=== PATIENT | female | born 1950 | race Caucasian/White ===

== ENCOUNTER 2018-02-21 13:26 | Emergency (ER) | payer MEDICARE, OTHER ==
[~2018-02-21] VITALS: Ht 162.6 cm; Wt 63.6 kg
[2018-02-21 14:19] LABS: BASOPHILS % (AUTO) 0.2 % (0-1); EOSINOPHILS # (AUTO) 0.1 X10'3 (0-0.9); EOSINOPHILS % (AUTO) 1.3 % (0-6); HEMATOCRIT 47.9 % (35.0-45.0); LYMPHOCYTES # (AUTO) 1.2 X10'3 (1.1-4.8); LYMPHOCYTES % (AUTO) 21.3 % (21-51); MEAN CORPUSCULAR HEMOGLOBIN 34.4 PG (27.0-31.0); MEAN CORPUSCULAR HGB CONC 35.6 % (33.0-36.5); MEAN CORPUSCULAR VOLUME 96.8 FL (78-98); MEAN PLATELET VOLUME 6.8 FL (7.4-10.4); MONOCYTES # (AUTO) 0.4 X10'3 (0-0.9); MONOCYTES % (AUTO) 7.1 % (2-12); NEUTROPHILS # (AUTO) 4.1 X10'3 (1.8-7.7); NEUTROPHILS % (AUTO) 70.1 % (42-75); PLATELET COUNT 202 X10'3 (140-440); RED BLOOD COUNT 4.95 X10'6 (4.20-5.60); WHITE BLOOD COUNT 5.8 X10'3 (4.5-11.0)
[2018-02-21 14:31] LABS: URINE AMPHETAMINE SCREEN NEGATIVE (Neg); URINE BARBITUATE SCREEN NEGATIVE (Neg); URINE BENZODIAZEPINES SCREEN NEGATIVE (Neg); URINE CANNABINOID SCREEN NEGATIVE (Neg); URINE COCAINE SCREEN NEGATIVE (Neg); URINE METHADONE SCREEN NEGATIVE (Neg); URINE OPIATE SCREEN NEGATIVE (Neg); URINE PHENCYCLIDINE SCREEN NEGATIVE (Neg)
[2018-02-21] MEDS ORDERED: Potassium Cl inj 20 MEQ, magnesium sulf injection 2 GM, folic acid inj. 1 MG, thiamine ... IV ONE ×6 (14:32)
[2018-02-21 14:33] LABS: ALANINE AMINOTRANSFERASE 82 U/L (12-78); ALBUMIN/GLOBULIN RATIO 1.1 (1.1-1.5); ALKALINE PHOSPHATASE 45 IU/L (46-116); ANION GAP 15 (8-16); ASPARTATE AMINO TRANSFERASE 65 U/L (10-37); BILIRUBIN,TOTAL 0.4 MG/DL (0.1-1.0); BLOOD UREA NITROGEN 13 MG/DL (7-18); CALCIUM 9.2 MG/DL (8.5-10.1); CHLORIDE 98 MMOL/L (99-107); CREATININE 0.81 MG/DL (0.40-0.90); ETHANOL 0.231 GM/DL (0.0-0.010); GLUCOSE 82 MG/DL (70-104); POTASSIUM 3.6 MMOL/L (3.5-5.1); SODIUM 138 MMOL/L (135-145); TOTAL CARBON DIOXIDE 24.8 MMOL/L (24-32); TOTAL PROTEIN 7.7 G/DL (6.4-8.2); eGFR 71 ML/MIN
[2018-02-21 17:41] VITALS: BP 118/67
== END 2018-02-21 17:45 | disposition home or self-care (01) ==
LOC: ER 13:26
DX: F10.220 Alcohol dependence with intoxication, uncomplicated (principal); I10 Essential (primary) hypertension; F17.200 Nicotine dependence, unspecified, uncomplicated
CPT/HCPCS: 36415; 80053; 80305; 80320; 85025; 96365; 96366; 99285; J3411; J3475; J3480; J3490

== ENCOUNTER 2020-09-03 08:53 | Emergency (ER) | payer MEDICARE, BC ==
[~2020-09-03] VITALS: Ht 162.6 cm; Wt 49.3 kg
[~2020-09-03 08:53] MED LIST: LISI1TAB51 PO; TRAZ-251 PO
[2020-09-03 12:15] LABS: BASOPHILS % (AUTO) 0.4 % (0-1); EOSINOPHILS % (AUTO) 0.1 % (0-6); HEMOGLOBIN 15.1 g/dl (12.0-16.0); LYMPHOCYTES # (AUTO) 1.5 X10'3 (1.1-4.8); LYMPHOCYTES % (AUTO) 12.9 % (21-51); MEAN CORPUSCULAR HEMOGLOBIN 34.9 PG (27.0-31.0); MEAN CORPUSCULAR HGB CONC 34.4 g/dL (33.0-36.5); MEAN CORPUSCULAR VOLUME 101.3 FL (78-98); MEAN PLATELET VOLUME 7.3 FL (7.4-10.4); MONOCYTES # (AUTO) 0.8 X10'3 (0-0.9); MONOCYTES % (AUTO) 6.7 % (2-12); NEUTROPHILS # (AUTO) 9.1 X10'3 (1.8-7.7); NEUTROPHILS % (AUTO) 79.9 % (42-75); PLATELET COUNT 213 X10'3 (140-440); RED BLOOD COUNT 4.34 X10'6 (4.20-5.60); RED CELL DISTRIBUTION WIDTH 19.2 % (11.5-14.5); WHITE BLOOD COUNT 11.4 X10'3 (4.5-11.0)
[2020-09-03] MEDS ORDERED: traZODone 50mg tablet PO ONE (12:25)
[2020-09-03] MEDS ORDERED: LORazepam 1 MG tablet PO ONE (12:25)
[2020-09-03 12:33] LABS: ALANINE AMINOTRANSFERASE 50 U/L (12-78); ALBUMIN 4.6 G/DL (3.4-5.0); ALBUMIN/GLOBULIN RATIO 1.4 (1.1-1.5); ALKALINE PHOSPHATASE 49 IU/L (46-116); ANION GAP 13 (8-16); ASPARTATE AMINO TRANSFERASE 43 U/L (10-37); BILIRUBIN,TOTAL 1.2 MG/DL (0.1-1.0); BLOOD UREA NITROGEN 20 MG/DL (7-18); BUN/CREATININE RATIO 22.2 (6.6-38.0); CALCIUM 10.3 MG/DL (8.5-10.1); CHLORIDE 91 MMOL/L (99-107); GLUCOSE 93 MG/DL (70-104); MAGNESIUM 1.8 MG/DL (1.5-2.4); POTASSIUM 4.4 MMOL/L (3.5-5.1); SODIUM 128 MMOL/L (135-145); TOTAL CARBON DIOXIDE 24.1 MMOL/L (24-32); eGFR 62 ML/MIN
[2020-09-03 12:55] LABS: ANISOCYTOSIS 2+; PLATELET ESTIMATE NORMAL
--- NOTE | 2020-09-03 13:00 | NUR ---
PATIENT STATES THAT SHE DOES NOT KNOW THE DOSES OF ANY OF HER MEDICATIONS AND IS HERE BECAUSE HER LENS HARDENER WOULD NOT GIVE HER MORE ATIVAN AND TRAZADONE "FOR MY INCREASED SHAKING 'CAUSE OF MY PARKINSONS". PATIENT DID NOT GO TO HER LAST APPOINTMENT WITH DR GUTIERREZ HER NEUROLOGIST LAST WEEK. PATIENT HAS APPT WITH LENS HARDENER AT DR SANTOS OFFICE TOMORROW. I ENCOURAGED HER TO CALL HER DAUGHTER AND SHE IS ON HER WAY PER PATIENT.
--- NOTE | 2020-09-03 13:00 | NUR ---
DAUGHTER IN LAW DANNY [phone] CALL[address]
[2020-09-03 13:24] VITALS: BP 154/86
== END 2020-09-03 13:31 | disposition home or self-care (01) ==
LOC: ER 08:54
DX: I10 Essential (primary) hypertension (principal); G20 Parkinson's disease; Z79.899 Other long term (current) drug therapy; Z76.0 Encounter for issue of repeat prescription
CPT/HCPCS: 36415; 80053; 83735; 85008; 85025; 99284

== ENCOUNTER 2020-10-12 22:34 | Emergency (ER) | payer MEDICARE, BC ==
[~2020-10-12] VITALS: Ht 172.7 cm; Wt 56.8 kg
[2020-10-12] MEDS ORDERED: LORazepam 2 mg/ml vial IV ONE (22:35)
[2020-10-12] MEDS ORDERED: folic acid 1mg tablet PO ONE (22:40)
[2020-10-12] MEDS ORDERED: thiamine 100mg/ml 2ml inj. IM ONE (22:40)
[2020-10-12] MEDS ORDERED: normal saline 1000ML IV soln IVB ONE (22:40)
[2020-10-12 23:17] LABS: ALANINE AMINOTRANSFERASE 13 U/L (12-78); ALBUMIN 4.3 G/DL (3.4-5.0); ALBUMIN/GLOBULIN RATIO 1.4 (1.1-1.5); ALKALINE PHOSPHATASE 43 IU/L (46-116); ANION GAP 9 (8-16); ASPARTATE AMINO TRANSFERASE 22 U/L (10-37); BILIRUBIN,TOTAL 0.6 MG/DL (0.1-1.0); BLOOD UREA NITROGEN 31 MG/DL (7-18); BUN/CREATININE RATIO 23.5 (6.6-38.0); CALCIUM 9.4 MG/DL (8.5-10.1); CHLORIDE 96 MMOL/L (99-107); CREATININE 1.32 MG/DL (0.40-0.90); ETHANOL < 0.010 GM/DL (0.0-0.010); GLUCOSE 123 MG/DL (70-104); POTASSIUM 3.6 MMOL/L (3.5-5.1); SODIUM 134 MMOL/L (135-145); TOTAL CARBON DIOXIDE 29.3 MMOL/L (24-32); TOTAL PROTEIN 7.4 G/DL (6.4-8.2); eGFR 40 ML/MIN
[2020-10-12] MEDS ORDERED: LORA-269 PO (23:37)
[2020-10-12 23:42] VITALS: BP 115/56
== END 2020-10-12 23:46 | disposition home or self-care (01) ==
LOC: ER 22:34
DX: G20 Parkinson's disease (principal); F10.230 Alcohol dependence with withdrawal, uncomplicated; F17.200 Nicotine dependence, unspecified, uncomplicated; I10 Essential (primary) hypertension; Z88.8 Allergy status to other drugs, medicaments and biological substances; Z79.899 Other long term (current) drug therapy; Y90.9 Presence of alcohol in blood, level not specified
CPT/HCPCS: 80053; 80320; 96361; 96372; 96374; 99284; J2060; J3411; J7030

== ENCOUNTER → 2021-04-16 | Emergency (ER) | payer MEDICARE, BC ==
[~2021-04-16] VITALS: Ht 162.6 cm; Wt 52.7 kg
[~2021-04-16] MED LIST changes: +CLON0.1T PO; +LORA-269 PO; +cloNIDine 0.1 mg tablet PO ONE; +normal saline 1000ML IV soln IVB ONE
[2021-04-16 12:55] LABS: BASOPHILS % (AUTO) 0.4 % (0-1); EOSINOPHILS # (AUTO) 0.1 X10'3 (0-0.9); EOSINOPHILS % (AUTO) 2.2 % (0-6); HEMATOCRIT 44.8 % (35.0-45.0); HEMOGLOBIN 15.5 g/dl (12.0-16.0); LYMPHOCYTES # (AUTO) 2.1 X10'3 (1.1-4.8); LYMPHOCYTES % (AUTO) 31.1 % (21-51); MEAN CORPUSCULAR HEMOGLOBIN 34.1 PG (27.0-31.0); MEAN CORPUSCULAR HGB CONC 34.5 g/dL (33.0-36.5); MEAN CORPUSCULAR VOLUME 98.9 FL (78-98); MEAN PLATELET VOLUME 7.9 FL (7.4-10.4); MONOCYTES # (AUTO) 0.6 X10'3 (0-0.9); MONOCYTES % (AUTO) 9.2 % (2-12); NEUTROPHILS # (AUTO) 3.8 X10'3 (1.8-7.7); NEUTROPHILS % (AUTO) 57.1 % (42-75); PLATELET COUNT 213 X10'3 (140-440); RED BLOOD COUNT 4.54 X10'6 (4.20-5.60); RED CELL DISTRIBUTION WIDTH 13.6 % (11.5-14.5); WHITE BLOOD COUNT 6.7 X10'3 (4.5-11.0)
[2021-04-16 13:13] LABS: ALANINE AMINOTRANSFERASE 15 U/L (12-78); ALBUMIN 4.3 G/DL (3.4-5.0); ALBUMIN/GLOBULIN RATIO 1.3 (1.1-1.5); ALKALINE PHOSPHATASE 51 IU/L (46-116); ANION GAP 6 (8-16); ASPARTATE AMINO TRANSFERASE 19 U/L (10-37); BILIRUBIN,TOTAL 0.5 MG/DL (0.1-1.0); BLOOD UREA NITROGEN 15 MG/DL (7-18); BUN/CREATININE RATIO 18.1 (6.6-38.0); CALCIUM 9.9 MG/DL (8.5-10.1); CHLORIDE 100 MMOL/L (99-107); CREATININE 0.83 MG/DL (0.40-0.90); GLUCOSE 99 MG/DL (70-104); POTASSIUM 3.7 MMOL/L (3.5-5.1); SODIUM 138 MMOL/L (135-145); TOTAL CARBON DIOXIDE 32.4 MMOL/L (24-32); TOTAL PROTEIN 7.5 G/DL (6.4-8.2); eGFR 68 ML/MIN
[2021-04-16 13:14] LABS: TROPONIN I < 0.04 NG/ML (0.0-0.05)
[2021-04-16 14:07] VITALS: BP 174/112
== END | disposition home or self-care (01) ==
LOC: ER 10:44
DX: I10 Essential (primary) hypertension (principal); G20 Parkinson's disease; Z72.89 Other problems related to lifestyle; Z60.2 Problems related to living alone; Z88.8 Allergy status to other drugs, medicaments and biological substances; Z79.899 Other long term (current) drug therapy
CPT/HCPCS: 36415; 80053; 84484; 85025; 93005; 96360; 99284; J7030

== ENCOUNTER 2021-06-16 21:12 | Inpatient (IN) | payer MEDICARE, BC ==
[~2021-06-16] VITALS: Ht 162.6 cm; Wt 58.0 kg
[~2021-06-16 21:12] MED LIST changes: -cloNIDine 0.1 mg tablet PO ONE; -normal saline 1000ML IV soln IVB ONE
[2021-06-16 21:43] LABS: BASOPHILS % (AUTO) 0.3 % (0-1); EOSINOPHILS # (AUTO) 0.1 X10'3 (0-0.9); EOSINOPHILS % (AUTO) 0.7 % (0-6); HEMATOCRIT 40.6 % (35.0-45.0); HEMOGLOBIN 14.4 g/dl (12.0-16.0); LYMPHOCYTES # (AUTO) 2.6 X10'3 (1.1-4.8); LYMPHOCYTES % (AUTO) 25.7 % (21-51); MEAN CORPUSCULAR HEMOGLOBIN 32.6 PG (27.0-31.0); MEAN CORPUSCULAR HGB CONC 35.6 g/dL (33.0-36.5); MEAN CORPUSCULAR VOLUME 91.8 FL (78-98); MEAN PLATELET VOLUME 6.5 FL (7.4-10.4); MONOCYTES # (AUTO) 0.6 X10'3 (0-0.9); MONOCYTES % (AUTO) 5.7 % (2-12); NEUTROPHILS # (AUTO) 6.9 X10'3 (1.8-7.7); NEUTROPHILS % (AUTO) 67.6 % (42-75); PLATELET COUNT 307 X10'3 (140-440); RED BLOOD COUNT 4.43 X10'6 (4.20-5.60); RED CELL DISTRIBUTION WIDTH 13.2 % (11.5-14.5); WHITE BLOOD COUNT 10.3 X10'3 (4.5-11.0)
--- NOTE | 2021-06-16 21:54 | NUR ---
BP 75/43 FLUID BOLUS 1000 ML ADMINISTERED PER MD. PT PLACED SUPINE. PT DENIES ANY DISCOMFORT.
[2021-06-16 22:17] LABS: ALANINE AMINOTRANSFERASE 22 U/L (12-78); ALBUMIN 3.7 G/DL (3.4-5.0); ALBUMIN/GLOBULIN RATIO 1.2 (1.1-1.5); ALKALINE PHOSPHATASE 56 IU/L (46-116); ANION GAP 10 (8-16); ASPARTATE AMINO TRANSFERASE 21 U/L (10-37); BILIRUBIN,TOTAL 0.5 MG/DL (0.1-1.0); BLOOD UREA NITROGEN 16 MG/DL (7-18); BUN/CREATININE RATIO 18.2 (6.6-38.0); CALCIUM 8.4 MG/DL (8.5-10.1); CHLORIDE 82 MMOL/L (99-107); CREATININE 0.88 MG/DL (0.40-0.90); GLUCOSE 106 MG/DL (70-104); MAGNESIUM 1.6 MG/DL (1.5-2.4); TOTAL CARBON DIOXIDE 28.3 MMOL/L (24-32); TOTAL PROTEIN 6.8 G/DL (6.4-8.2); eGFR 64 ML/MIN
[2021-06-16 22:20] LABS: SODIUM 120 MMOL/L (135-145)
--- NOTE | 2021-06-16 22:33 | NUR ---
Dr. Benitez notified on critical NA and K
[2021-06-16] MEDS ORDERED: magnesium 2GM in 50ml NS 50 ML IV ONE (22:40)
[2021-06-16] MEDS ORDERED: potassium Cl 20 mEq SR tablet PO ONE (22:40)
[2021-06-16] MEDS ORDERED: potassium 10mEq/100ml NS w/LIDOcaine (10mg/bag) IV ONE (22:40)
[2021-06-16] MEDS ORDERED: potassium Cl 10 mEq/100mL bag IV ONE (22:45)
[2021-06-16 22:55] LABS: ETHANOL 0.111 GM/DL (0.0-0.010); PHOSPHORUS 2.1 MG/DL (2.3-4.5)
[2021-06-16] MEDS ORDERED: haloperidol lactate 5mg/ml inj IM PRN (23:20)
[2021-06-16] MEDS ORDERED: magnesium 4gm in 100ml NS 100 ML IV PRN (23:20)
[2021-06-16] MEDS ORDERED: haloperidol 5mg tablet PO PRN (23:20)
[2021-06-16] MEDS ORDERED: ipratropium/albuterol 3ml nebule NEB PRN (23:20)
[2021-06-16] MEDS ORDERED: albuterol 2.5 MG/3 ML nebule NEB PRN (23:20)
[2021-06-16] MEDS ORDERED: potassium Cl 20 mEq SR tablet PO PRN ×2 (23:20)
[2021-06-16] MEDS ORDERED: acetaminophen 325mg tablet PO PRN ×2 (23:20)
[2021-06-16] MEDS ORDERED: HYDROcodone/acetaminophen 10/325mg tab PO PRN (23:20)
[2021-06-16] MEDS ORDERED: ondansetron/PF 4mg/2ml inj IV PRN (23:20)
[2021-06-16] MEDS ORDERED: bisacodyl 10mg suppository rectal RC PRN (23:20)
[2021-06-16] MEDS ORDERED: HYDROcodone/acetaminophen 5mg/325mg tablet PO PRN (23:20)
[2021-06-16] MEDS ORDERED: potassium Cl 40MEQ/1/2NS 520ml 520 ML IV PRN ×2 (23:20)
[2021-06-16] MEDS ORDERED: magnesium 2GM in 50ml NS 50 ML IV PRN (23:20)
[2021-06-16] MEDS: potassium Cl 20mEq in NS 1,000 ML IV SCH (23:56)
[2021-06-17] VITALS (7 sets, daily range): BP systolic 100–135; BP diastolic 56–69
--- NOTE | 2021-06-17 00:26 | NUR ---
Patient in room ED 3. I have received report from Luis-HEBERT in ED and had the opportunity to ask questions and assume patient care.
--- NOTE | 2021-06-17 06:10 | NUR ---
Problems reprioritized. Patient report given, questions answered & plan of care reviewed with Sotero.
--- NOTE | 2021-06-17 06:17 | NUR ---
Patient in room PCU 3014. I have received report from HEBERT Hobson and had the opportunity to ask questions and assume patient care.
[2021-06-17] MEDS: docusate sod 100mg capsule PO SCH ×2 (08:00→19:53)
[2021-06-17] MEDS: K and/or MAG REPLACEMENT MC SCH ×2 (08:00→20:00)
[2021-06-17] MEDS: nicotine 14mg patch - 24hr TD SCH (09:18)
[2021-06-17] MEDS: thiamine 100mg tablet PO SCH (09:19)
[2021-06-17] MEDS: multivitamins, therapeutics tablet PO SCH (09:19)
[2021-06-17] MEDS: folic acid 1mg tablet PO SCH (09:19)
[2021-06-17] MEDS: potassium Cl 20mEq in NS 1,000 ML IV SCH (09:20)
[2021-06-17] MEDS ORDERED: CARB1TAB35 PO (09:38)
[2021-06-17] MEDS ORDERED: LORazepam 2 mg/ml vial IV PRN (09:40)
[2021-06-17] MEDS ORDERED: haloperidol lactate 5mg/ml inj IM PRN (09:40)
[2021-06-17] MEDS ORDERED: dextrose 50%-water 50ml dispensing syringe IV PRN (09:40)
[2021-06-17] MEDS ORDERED: thiamine 100mg/ml 2ml inj. IV ONE (09:40)
[2021-06-17] MEDS ORDERED: haloperidol 5mg tablet PO PRN (09:40)
[2021-06-17 09:53] LABS: BASOPHILS % (AUTO) 0.1 % (0-1); EOSINOPHILS % (AUTO) 0.1 % (0-6); HEMATOCRIT 37.7 % (35.0-45.0); HEMOGLOBIN 13.3 g/dl (12.0-16.0); LYMPHOCYTES # (AUTO) 1.4 X10'3 (1.1-4.8); LYMPHOCYTES % (AUTO) 23.2 % (21-51); MEAN CORPUSCULAR HEMOGLOBIN 32.5 PG (27.0-31.0); MEAN CORPUSCULAR HGB CONC 35.2 g/dL (33.0-36.5); MEAN CORPUSCULAR VOLUME 92.2 FL (78-98); MEAN PLATELET VOLUME 8.2 FL (7.4-10.4); MONOCYTES # (AUTO) 0.7 X10'3 (0-0.9); MONOCYTES % (AUTO) 10.9 % (2-12); NEUTROPHILS % (AUTO) 65.7 % (42-75); PLATELET COUNT 202 X10'3 (140-440); RED BLOOD COUNT 4.09 X10'6 (4.20-5.60); RED CELL DISTRIBUTION WIDTH 12.9 % (11.5-14.5); WHITE BLOOD COUNT 6.2 X10'3 (4.5-11.0)
[2021-06-17 10:08] LABS: ALANINE AMINOTRANSFERASE 23 U/L (12-78); ALBUMIN 3.6 G/DL (3.4-5.0); ALBUMIN/GLOBULIN RATIO 1.2 (1.1-1.5); ALKALINE PHOSPHATASE 41 IU/L (46-116); AMYLASE 35 U/L (25-115); ANION GAP 8 (8-16); ASPARTATE AMINO TRANSFERASE 20 U/L (10-37); BILIRUBIN,TOTAL 0.8 MG/DL (0.1-1.0); BLOOD UREA NITROGEN 13 MG/DL (7-18); CALCIUM 7.7 MG/DL (8.5-10.1); CHLORIDE 95 MMOL/L (99-107); CREATININE 0.65 MG/DL (0.40-0.90); GLUCOSE 92 MG/DL (70-104); LIPASE 134 U/L (73-393); MAGNESIUM 2.5 MG/DL (1.5-2.4); POTASSIUM 3.6 MMOL/L (3.5-5.1); SODIUM 131 MMOL/L (135-145); TOTAL CARBON DIOXIDE 28.1 MMOL/L (24-32); TOTAL PROTEIN 6.5 G/DL (6.4-8.2); eGFR 90 ML/MIN
[2021-06-17] MEDS: LORazepam 2 mg/ml vial IV PRN ×2 (10:42→12:35)
[2021-06-17] MEDS ORDERED: thiamine inj. 100 MG in normal saline 100ml IV soln 100 ML IV ONE (11:00)
--- NOTE | 2021-06-17 11:24 | NUR ---
Malnutrition screen. Pt admitted w/ weakness for the past 2 weeks and s/p fall. Pt noted to drink 2-3 glasses of wine daily, currently on moderate EtOH withdrawal policy per EMR. Pt reports she has lost 2-3lbs in the last month. Pt's current scaled wt is consistent w/ wt from previous admission in March, though that wt is not scaled. Pt reports she has a decreased appetite and still feels a little nauseas. No wasting observed at bedside, no edema noted. At this time, pt does not meet minimum 2 criteria for malnutrition. Will continue to monitor. Addendum: 06/17/21 at [address] Amended: Links added.
[2021-06-17] MEDS: carbidoba-levodopa 25-100mg tablet PO SCH ×4 (12:35→18:49)
[2021-06-17] MEDS ORDERED: HYDR-3927 PO (15:30)
[2021-06-17] MEDS ORDERED: PROP10TA10 PO (15:31)
[2021-06-17] MEDS ORDERED: TRAZ-251 PO (15:32)
[2021-06-17] MEDS ORDERED: hydrOXYzine 25 MG tablet PO PRN (17:25)
[2021-06-17] MEDS ORDERED: carbidoba-levodopa 25-100mg tablet PO SCH (18:00)
[2021-06-17 19:43] LABS: URINE AMPHETAMINE SCREEN NEGATIVE (Neg); URINE BARBITUATE SCREEN NEGATIVE (Neg); URINE BENZODIAZEPINES SCREEN NEGATIVE (Neg); URINE CANNABINOID SCREEN POSITIVE (Neg); URINE COCAINE SCREEN NEGATIVE (Neg); URINE METHADONE SCREEN NEGATIVE (Neg); URINE OPIATE SCREEN NEGATIVE (Neg); URINE PHENCYCLIDINE SCREEN NEGATIVE (Neg)
[2021-06-17 19:46] LABS: CLARITY,URINE CLEAR (Clear); COLOR,URINE YELLOW (Yellow); GLUCOSE, URINE 100 mg/dl (Neg); KETONES,URINE 15 mg/dl (Neg); LEUKOCYTE ESTERASE ,URINE TRACE (Neg); NITRITES, URINE NEGATIVE (Neg); OCCULT BLOOD,URINE NEGATIVE (Neg); PH,URINE 7.5 (4.8-8.0); PROTEIN,URINE NEGATIVE (Neg); UROBILINOGEN,URINE 0.2 E.U/dL (0.2-1.0)
[2021-06-17 19:57] LABS: UA COLLECTION TYPE CLN CATCH MIDSTREAM
[2021-06-17 19:59] LABS: BACTERIA,URINE NONE SEEN /HPF (Neg); RBC,URINE 0-2 /HPF (0-2); SQUAMOUS EPITHELIAL CELL,UR NONE SEEN /LPF (FEW); WBC,URINE 0-4 /HPF (0-4)
[2021-06-17] MEDS ORDERED: enoxaparin 40mg/0.4ml syringe SQ SCH (20:00)
[2021-06-17] MEDS ORDERED: traZODone 50mg tablet PO SCH (21:00)
[2021-06-17] MEDS: propranolol 10mg tablet PO SCH (21:40)
[2021-06-18 02:35] LABS: BASOPHILS % (AUTO) 0.4 % (0-1); EOSINOPHILS # (AUTO) 0.1 X10'3 (0-0.9); EOSINOPHILS % (AUTO) 0.9 % (0-6); HEMATOCRIT 35.1 % (35.0-45.0); HEMOGLOBIN 12.3 g/dl (12.0-16.0); LYMPHOCYTES % (AUTO) 35.2 % (21-51); MEAN CORPUSCULAR HEMOGLOBIN 32.9 PG (27.0-31.0); MEAN CORPUSCULAR HGB CONC 35.1 g/dL (33.0-36.5); MEAN CORPUSCULAR VOLUME 93.6 FL (78-98); MEAN PLATELET VOLUME 6.3 FL (7.4-10.4); MONOCYTES # (AUTO) 0.5 X10'3 (0-0.9); MONOCYTES % (AUTO) 9.6 % (2-12); NEUTROPHILS # (AUTO) 3.1 X10'3 (1.8-7.7); NEUTROPHILS % (AUTO) 53.9 % (42-75); PLATELET COUNT 253 X10'3 (140-440); RED BLOOD COUNT 3.75 X10'6 (4.20-5.60); RED CELL DISTRIBUTION WIDTH 12.9 % (11.5-14.5); WHITE BLOOD COUNT 5.7 X10'3 (4.5-11.0)
[2021-06-18 02:52] LABS: ALANINE AMINOTRANSFERASE 7 U/L (12-78); ALBUMIN 3.4 G/DL (3.4-5.0); ALBUMIN/GLOBULIN RATIO 1.4 (1.1-1.5); ALKALINE PHOSPHATASE 48 IU/L (46-116); AMYLASE 25 U/L (25-115); ANION GAP 7 (8-16); ASPARTATE AMINO TRANSFERASE 16 U/L (10-37); BILIRUBIN,TOTAL 0.7 MG/DL (0.1-1.0); BLOOD UREA NITROGEN 9 MG/DL (7-18); BUN/CREATININE RATIO 14.5 (6.6-38.0); CALCIUM 7.7 MG/DL (8.5-10.1); CHLORIDE 99 MMOL/L (99-107); CREATININE 0.62 MG/DL (0.40-0.90); GLUCOSE 93 MG/DL (70-104); LIPASE 52 U/L (73-393); MAGNESIUM 2.1 MG/DL (1.5-2.4); PHOSPHORUS 2.2 MG/DL (2.3-4.5); POTASSIUM 3.1 MMOL/L (3.5-5.1); SODIUM 133 MMOL/L (135-145); TOTAL CARBON DIOXIDE 27.1 MMOL/L (24-32); TOTAL PROTEIN 5.9 G/DL (6.4-8.2); eGFR > 90 ML/MIN
--- NOTE | 2021-06-18 06:10 | NUR ---
Problems reprioritized. Patient report given, questions answered & plan of care reviewed with HEBERT Stone.
--- NOTE | 2021-06-18 06:43 | NUR ---
Patient in room PCU 3014. I have received report from Nat AMBROSIO and had the opportunity to ask questions and assume patient care. Pt supine in bed, assisted to move up in the bed, and reorganize side table. pt pleasant, verbalizing simple needs. SRx2, BLL, CL within reach, no s/sx acute distress
[2021-06-18 07:00] VITALS: BP 106/70
--- NOTE | 2021-06-18 07:53 | NUR ---
Pt declining IV K. Pt states "My veins can not take it any more." pt unable to swallow large K-Dur tabs. Paged Dr. Aviles "PAGER ID: [phone] MESSAGE: RE: Sharon BILLINGSLEY RM [id number]: May i please switch the pt to effervescent potassium replacement? veins are weary from IV K and pt can not swallow the large K-Dur. -Bertha Fox #[phone]"
[2021-06-18] MEDS ORDERED: lisinopril 20mg tablet PO SCH (08:00)
[2021-06-18] MEDS ORDERED: HYDROchlorothiazide 25mg tablet PO SCH (08:00)
[2021-06-18] MEDS ORDERED: traZODone 50mg tablet PO SCH (08:00)
[2021-06-18] MEDS: thiamine 100mg tablet PO SCH (08:36)
[2021-06-18] MEDS: nicotine 14mg patch - 24hr TD SCH (08:36)
[2021-06-18] MEDS: carbidoba-levodopa 25-100mg tablet PO SCH ×2 (08:36→12:42)
[2021-06-18] MEDS: multivitamins, therapeutics tablet PO SCH (08:36)
[2021-06-18] MEDS: propranolol 10mg tablet PO SCH ×2 (08:36→12:50)
[2021-06-18] MEDS: folic acid 1mg tablet PO SCH (08:36)
[2021-06-18] MEDS: docusate sod 100mg capsule PO SCH (08:38)
[2021-06-18] MEDS: LORazepam 2 mg/ml vial IV PRN (08:38)
[2021-06-18] MEDS: K and/or MAG REPLACEMENT MC SCH (08:39)
[2021-06-18] MEDS ORDERED: THIA100T70 PO (09:40)
[2021-06-18] MEDS ORDERED: FOLI0.4T6 PO (09:40)
[2021-06-18 11:00] VITALS: BP 147/81
[2021-06-18] MEDS ORDERED: POTASSIUM BICARB 20meq eff tab 20 MEQ TABLET.EFF PO PRN ×3 (11:50→11:57)
--- NOTE | 2021-06-18 12:00 | NUR ---
Pt refused blood sugar check.
--- NOTE | 2021-06-18 13:55 | NUR ---
Pt stable for transfer to [facility] per MD order. report called to Shelly Junior at [facility]. all questions answered. PIV discontinued x2. cannula intact. patient monitor discontinued. belongings collected and sent with pt. pt assisted to transfer into wheel chair, where she left with dedrick samuel. pt left with slight smile on face. no s/sx acute distress. breathing even.
[2021-06-18] MEDS ORDERED: LORazepam 1 MG tablet PO PRN (23:20)
[2021-06-18] MEDS ORDERED: LORazepam 2 mg/ml vial IV PRN (23:20)
[2021-06-19] MEDS ORDERED: LORazepam 2 mg/ml vial IV PRN (09:40)
[2021-06-19] MEDS ORDERED: LORazepam 1 MG tablet PO PRN (09:40)
[2021-06-20] MEDS ORDERED: LORazepam 1 MG tablet PO PRN (23:20)
[2021-06-20] MEDS ORDERED: LORazepam 2 mg/ml vial IV PRN (23:20)
[2021-06-21] MEDS ORDERED: LORazepam 1 MG tablet PO PRN (09:40)
[2021-06-21] MEDS ORDERED: LORazepam 2 mg/ml vial IV PRN (09:40)
== END 2021-06-18 14:00 | DRG 641 ==
LOC: ER 21:12 → ED HOLD 23:29 → PCU 3S 06-17 01:00
PROVIDERS: ADMIT Family Medicine; ATTEND Family Medicine
DX: E87.1 Hypo-osmolality and hyponatremia (principal); E87.6 Hypokalemia; E83.42 Hypomagnesemia; Z20.822 Contact with and (suspected) exposure to COVID-19; I73.9 Peripheral vascular disease, unspecified; F10.229 Alcohol dependence with intoxication, unspecified; W01.10XA Fall on same level from slipping, tripping and stumbling with subsequent striking against unspecified object, initial encounter; G20 Parkinson's disease; F32.9 Major depressive disorder, single episode, unspecified; I10 Essential (primary) hypertension; Z66 Do not resuscitate; F17.210 Nicotine dependence, cigarettes, uncomplicated; Z91.14 Patient's other noncompliance with medication regimen; Z88.8 Allergy status to other drugs, medicaments and biological substances; Y93.89 Activity, other specified; Y92.098 Other place in other non-institutional residence as the place of occurrence of the external cause; Y99.8 Other external cause status; Z79.899 Other long term (current) drug therapy; Z81.1 Family history of alcohol abuse and dependence; Z71.6 Tobacco abuse counseling
CPT/HCPCS: 36415; 70450; 71045; 72125; 80053; 80305; 80320; 81001; 82150; 82948; 83690; 83735; 83880; 84100; 84484; 85025; 85610; 87081; 87088; 87635; 93005; 94760; 96365; 97116; 97162; 97530; 99285; G0378; J1650; J2060; J3411; J3475; J3480

== ENCOUNTER 2021-07-16 15:20 | Emergency (ER) | payer MEDICARE, BC ==
[~2021-07-16] VITALS: Ht 162.6 cm; Wt 52.3 kg
[~2021-07-16 15:20] MED LIST changes: +CARB1TAB35 PO; -CLON0.1T PO; +FOLI0.4T6 PO; +HYDR-3927 PO; -LORA-269 PO; +PROP10TA10 PO; +THIA100T70 PO
[2021-07-16 16:20] VITALS: BP 107/50
== END 2021-07-16 16:15 | disposition home or self-care (01) ==
LOC: ER 15:20
DX: I95.9 Hypotension, unspecified (principal); I10 Essential (primary) hypertension; G20 Parkinson's disease; Z72.89 Other problems related to lifestyle; Z88.8 Allergy status to other drugs, medicaments and biological substances; Z79.899 Other long term (current) drug therapy
CPT/HCPCS: 99283

== ENCOUNTER 2024-06-26 12:58 | Outpatient (CLI) | payer MEDICARE, BC ==
[~2024-06-26 12:58] MED LIST changes: -FOLI0.4T6 PO
== END 2024-06-26 23:59 | disposition home or self-care (01) ==
LOC: 64 CT 12:58
PROVIDERS: ATTEND Family Medicine
DX: Z03.89 Encounter for observation for other suspected diseases and conditions ruled out (principal); M16.11 Unilateral primary osteoarthritis, right hip; R52 Pain, unspecified; M85.88 Other specified disorders of bone density and structure, other site; M89.8X8 Other specified disorders of bone, other site
CPT/HCPCS: 73700

== ENCOUNTER 2024-08-08 10:41 | Outpatient (CLI) | payer MEDICARE, BC | END 2024-08-08 23:59 | disposition home or self-care (01) | LOC: MRI 10:41 | PROVIDERS: ATTEND Family Medicine | DX: M47.817 Spondylosis without myelopathy or radiculopathy, lumbosacral region (principal); M51.360 Other intervertebral disc degeneration, lumbar region with discogenic back pain only; M48.07 Spinal stenosis, lumbosacral region | CPT/HCPCS: 72148 ==

== ENCOUNTER 2025-01-10 09:13 | Outpatient (CLI) | payer MEDICARE, BC | END 2025-01-10 23:59 | disposition home or self-care (01) | LOC: RAD 09:13 | PROVIDERS: ATTEND Psychiatry & Neurology Neurology | DX: R13.10 Dysphagia, unspecified (principal); G20.A1 Parkinson's disease without dyskinesia, without mention of fluctuations | CPT/HCPCS: 74230 ==